=== PATIENT | female | born 1945 | race Caucasian/White ===

== ENCOUNTER 2020-10-11 11:11 | Inpatient (IN) ==
--- NOTE | 2020-09-12 14:47 | PAT Medication Instructions ---
Medication Instructions Date of Service September 12, 2020 Home Medications calcium carbonate-vitamin D3 [Calcium + D] 1 tab PO QAM letrozole 2.5 mg PO QAM paroxetine HCl [Paxil] 40 mg PO QAM Continue as directed letrozole 2.5 mg PO QAM (unless surgeon directs otherwise) DO NOT take the morning of surgery calcium carbonate-vitamin D3 [Calcium + D] 1 tab PO QAM Take morning of surgery With a small sip of water, OTHERWISE NOTHING TO EAT OR DRINK AFTER MIDNIGHT: paroxetine HCl [Paxil] 40 mg PO QAM Other Notes If you have any questions please call us at [phone] or [phone] or [phone] or [phone]
--- NOTE | 2020-09-22 15:16 | Anesthesiology Consultation ---
Date of Service September 22, 2020 Assessment & Plan (1) Encounter for pre-operative examination: Chart Review Chart Review: Acceptable Risk for Surgery (pending preop Covid testing results ) and Patient seen in Pre Admission Testing Pt would like to be deeply sedated during procedure Right UE restriction Per PAT appt on 09/22/20, patient denies any travel or large group activities. No known Covid positive contacts or Covid related symptoms. No known Covid infection in the past 90 days. Preop Covid testing 10/04/20= will await results. Educated on importance of self quarantining, social distancing and wearing mask in public both for the patient and household contacts. History Surgery Operation Date: 10/11/20 08:55 Proposed Procedures p Left Total Hip Arthroplasty - Jayden Holloway DO Height/Weight Height: 5 ft 4 in Weight: 71.7 kg Allergies Allergy/AdvReac Type Severity Reaction Status Date / Time No Known Allergies Allergy Verified 09/01/20 13:42 Medications Home Medications Medication Instructions Recorded Confirmed Last Taken calcium carbonate-vitamin D3 1 tab PO QAM 09/01/20 09/01/20 Unknown [Calcium + D] letrozole 2.5 mg PO QAM 09/01/20 09/01/20 Unknown paroxetine HCl [Paxil] 40 mg PO QAM 09/01/20 09/01/20 Unknown Past Medical History Medical History Breast cancer 2012; rt lumpectomy + chemo/radiation No current issues Depression History of basal cell carcinoma History of melanoma Pt had "pre-melanoma" - s/p removal Osteoarthritis Exercise / Class Metabolic Activity II 4-5 Yardwork/Stairs/Walk up hill (ONE FLIGHT OF STAIRS- NO CHEST PAIN OR SOB ) Past Family History Family History Other No family history of adverse response to anesthesia Past Surgical History Surgical History History of basal cell carcinoma (BCC) excision History of breast biopsy History of cataract surgery History of colonoscopy History of D&C History of lumpectomy of right breast History of melanoma excision History of tooth extraction History of vascular access device Past Anesthesia History No Hx of Anesthesia Complications and No Family Hx of Anesthesia Complications History of PONV No Hx of PONV and No Hx of Motion Sickness Social History Smoking Status: Never smoker Do You Dip or Chew Tobacco: No Hx Alcohol Use: Yes Alcohol type: wine alcohol intake frequency: a few times a week Hx Substance Use: No substance use type: does not use Review of Systems Patient denies chest pain, shortness of breath, dyspnea on exertion, reflux, cough, wheezing, palpitations. No hx of seizures, stroke, [place], apnea/snoring. No hx of blood clots or blood transfusions Physical Exam Vital Signs VITALS BP 111/75 P 83 TEMP 98.2 SP02 98% RESP 16 Constitutional no acute distress ENMT Mouth: no TMJ clicking Thyromental Distance: < 3.5 Finger Breadths (3.0) Mallampati Class: III Partial bottom plate Caps to front top teeth Neck neck extension not limited Respiratory normal respiratory effort; no respiratory distress Auscultation: lungs clear to auscultation bilaterally; no wheezes Cardiovascular Rate/Rhythm: regular rate and regular rhythm Heart Sounds: no murmur Vessels: no carotid bruit Musculoskeletal Spine: no pain with cervical ROM Extremities: extremities normal to inspection Psychiatric Orientation: alert Testing Laboratory Results 09/22/20:09/22/20 PT 10.7 Seconds (9.0-12.0) 09/22/20 INR 1.1 (0.9-1.1) 09/22/20 APTT 24.2 Seconds (21.0-31.0) 09/22/20 Hemoglobin A1c 5.8 % (4.5-5.6) H 09/22/20 Urine Color Yellow 09/22/20 Urine Appearance Clear (Clear) 09/22/20 Urine pH 7.0 (4.5-7.5) 09/22/20 Ur Specific [place] 1.022 (1.000-1.030) 09/22/20 Urine Protein Negative (Negative) 09/22/20: Urine Glucose (UA) Negative (Negative) 09/22/20 Urine Ketones Trace (Negative) H 04/15/21 15:29 Urine Nitrite Negative (Negative) 09/22/20 15:29 Ur Leukocyte Esterase 1+ (Negative) H 09/22/20 15:29 Urine WBC (Auto) 1-5 /hpf (0-5) 09/22/20 15:29 Urine RBC (Auto) 5-10 /hpf (0-4) H 09/22/20 15:29 U Hyaline Cast (Auto) 1-5 /lpf (0-5) 09/22/20 15:29 U Epithel Cells (Auto) >30 /lpf (0-5) H 09/22/20 15:29 Urine Bacteria (Auto) Negative (Negative) 09/22/20 15:29 Blood Type O Positive 09/22/20 15:29 Antibody Screen NEGATIVE 09/22/20 15:29 Electrocardiogram Date: 09/22/20 Findings: + NSR @ (76bpm) Normal EKG per cardio. Chest X-Ray Date: 09/22/20 Findings: + NAD
[2020-09-22 15:48] LABS: Basophils # (auto) 0.04 K/uL (0-0.2); Basophils % (auto) 0.6 %; Eosinophils # (auto) 0.38 K/uL (0-0.5); Eosinophils % (auto) 5.5 %; Hematocrit (blood only) 38.1 % (37-47); Hemoglobin 13.1 g/dL (12.0-16.0); Immature Granulocytes # (auto) 0.01 K/uL (0.00-0.02); Immature Granulocytes % (auto) 0.1 %; Lymphocytes # (auto) 2.64 K/uL (1.2-3.4); Mean Corpuscular Hemoglobin 30.9 pg (25-34); Mean Corpuscular Hgb Conc 34.4 g/dL (32-36); Mean Corpuscular Volume 89.9 fL (80-100); Mean Platelet Volume 8.8 fL (7.4-10.4); Monocytes # (auto) 0.64 K/uL (0.11-0.59); Monocytes % (auto) 9.2 %; Neutrophils # (auto) 3.23 K/uL (1.4-6.5); Neutrophils % (auto) 46.6 %; Platelet Count 295 K/uL (130-400); RDW Coefficient of Variation 14.1 % (11.5-14.5); RDW Standard Deviation 46.8 fL (36.4-46.3); Red Blood Count 4.24 M/uL (4.2-5.4); White Blood Count 6.94 K/uL (4.8-10.8)
[2020-09-22 15:55] LABS: Appearance Urine Clear (Clear); Bacteria Urine Automated Negative (Negative); Bilirubin Urine Negative (Negative); Blood Urine Negative (Negative); Color Urine Yellow; Epithelial Cell Urine Auto >30 /lpf (0-5); Glucose Urine UA Negative (Negative); Ketones Urine Trace (Negative); Leukocyte Esterase Urine 1+ (Negative); Nitrite Urine Negative (Negative); Protein Urine Negative (Negative); Specific Gravity Urine 1.022 (1.000-1.030); Urobilinogen Urine Negative (Negative)
--- NOTE | 2020-09-22 15:55 | XRay Report ---
XR chest Pre-admission PA/Lat HISTORY: 75 years-old Female pat chronic degenerative joint disease COMPARISON: None TECHNIQUE: PA and lateral views of the chest FINDINGS: Cardiomediastinal and hilar silhouettes are within normal limits. No pneumothorax, pleural effusion, airspace consolidation or overt pulmonary edema. Surgical clips of the right axilla. Degenerative antonia nges of the shoulders and spine. IMPRESSION: No acute process. ACT 112: Negative or not required by law. The above report was generated using voice recognition software. It may contain grammatical, syntax o r spelling errors. Electronically signed by: Allan Lund M.D. 09/22/2020 3:53 PM
[2020-09-22 16:01] LABS: INR 1.1 (0.9-1.1); Partial Thromboplastin Ratio 0.9; Partial Thromboplastin Time 24.2 Seconds (21.0-31.0); Prothrombin Time 10.7 Seconds (9.0-12.0)
[2020-09-22 16:15] LABS: Albumin Level 3.8 gm/dl (3.4-5.0); BUN Creatinine Ratio 19.9 (10-20); Calcium 9.4 mg/dl (8.5-10.1); Creatinine Clr Calc Pharmacy 47.2 ml/min; Est GFR (African American) 65.3; Est GFR (Non-African American) 56.3; Potassium 3.9 mmol/L (3.5-5.1)
[2020-09-23 06:16] LABS: Estimated Average Glucose 120 mg/dl; Hemoglobin A1C 5.8 % (4.5-5.6)
--- NOTE | 2020-09-23 06:50 | Electrocardiogram Report ---
Test Reason : Blood Pressure : / mmHG Vent. Rate : 076 BPM Atrial Rate : 076 BPM P-R Int : 148 ms QRS Dur : 080 ms QT Int : 382 ms P-R-T Axes : 081 081 072 degrees QTc Int : 429 ms Normal sinus rhythm Normal ECG No previous ECGs available Confirmed by Hayes Burroughs ([id number]) on 09/23/2020 6:49:40 AM Referred By: Jayden Holloway Confirmed By:Hayes Burroughs
--- NOTE | 2020-10-09 12:47 | History & Physical Report ---
Date of Service October 11, 2020 Assessment & Plan (1) Degenerative joint disease of left hip: I have indicated the patient for left anterior total hip replacement. The risks, benefits and complications of surgery were explained to the patient which include but not limited to infection, acute blood loss, DVT/PE, injury to nerves, vessels, bone, soft tissue, arthrofibrosis, chronic pain, failure of the prosthesis, hip dislocation, leg length discrepancy, need for additional surgery, cardiac and pulmonary events and . The patient wished to proceed with surgery and informed consent was obtained at this time. We will plan for 81mg ASA BID post-operatively for DVT prophylaxis. Upon discharge the patient will be discharged home with home health services. Appropriate clearances by NAIMA P were obtained. History of Present Illness Chief Complaint: Left hip pain/DJD Primary Care Provider: Rochelle Guzmán The patient is a 75 year old female who presents with complaints of severe left hip pain and DJD. The patient has failed outpatient conservative treatments to this point which included NSAIDs, activity modification and a home exerci se/walking program. The patient's pain and limited function have progressed to the point where they severely hinder their activities of daily living and they no longer tolerate exercise programs. They are requesting to proceed with total hip replacement surgery. Allergies Allergy/AdvReac Type Severity Reaction Status Date / Time No Known Allergies Allergy Verified 10/11/20 11:36 Home Medications Medication Instructions Recorded Confirmed Type calcium carbonate-vitamin D3 1 tab PO QAM 09/01/20 10/11/20 History [Calcium + D] letrozole 2.5 mg PO QAM 09/01/20 10/11/20 History paroxetine HCl [Paxil] 40 mg PO QAM 09/01/20 10/11/20 History multivitamin 1 tab PO DAILY 10/11/20 10/11/20 History Past Med/Surg History Medical History Breast cancer 2012; rt lumpectomy + chemo/radiation No current issues Depression History of basal cell carcinoma History of melanoma Pt had "pre-melanoma" - s/p removal Osteoarthritis Surgical History History of basal cell carcinoma (BCC) excision History of breast biopsy History of cataract surgery History of colonoscopy History of D&C History of lumpectomy of right breast History of melanoma excision History of tooth extraction History of vascular access device Family History Other No family history of adverse response to anesthesia Social History Smoking Status: Never smoker Second Hand Exposure: Yes (hx); Do You Dip or Chew Tobacco: No; Hx Alcohol Use: Yes Alcohol type: wine Hx Substance Use: No Preferred Language: [place] Communication Ability: Effective 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 Constitutional: WD/WN, vitals as above Eyes: PERRL, conjunctivae normal, anicteric sclerae ENMT: external ear and nose normal, oropharynx normal Neck: trachea midline, no thyromegaly Respiratory: normal respiratory effort, lungs clear to auscultation Cardiovascular: RRR, no murmur, no edema Gastrointestinal (Abdomen): normal bowel sounds, soft, nontender, no hepatosplenomegaly Musculoskeletal: no cyanosis or clubbing, extremities motor strength 5/5 Skin: no rashes, warm and dry Neurologic: patellar DTR's 2+ bilat, sensation intact Psychiatric: A+Ox3, euthymic affect Lymphatic: no cervical or axillary lymphadenopathy Results & Data Results & Data ([facility]) Diagnostic Findings Multiple views of the hip demonstrates severe DJD with complete loss of the joint space. +osteophytes, +sclerosis, +subchondral cysts. Pre Admission Testing Addendum Laboratory Results 09/22/20 15:29 09/22/20 15:29 PT 10.7 Seconds (9.0-12.0) 09/22/20 15:29 INR 1.1 (0.9-1.1) 09/22/20 15:29 APTT 24.2 Seconds (21.0-31.0) 09/22/20 Hemoglobin A1c 5.8 % (4.5-5.6) H 09/22/20 Urine Color Yellow 09/22/20 Urine Appearance Clear (Clear) 09/22/20 Urine pH 7.0 (4.5-7.5) 09/22/20 Ur Specific [place] 1.022 (1.000-1.030) 09/22/20 Urine Protein Negative (Negative) 09/22/20 Urine Glucose (UA) Negative (Negative) 09/22/20 Urine Ketones Trace (Negative) H 09/22/20 Urine Nitrite Negative (Negative) 09/22/20 Ur Leukocyte Esterase 1+ (Negative) H 09/22/20 Urine WBC (Auto) 1-5 /hpf (0-5) 09/22/20 Urine RBC (Auto) 5-10 /hpf (0-4) H 09/22/20 U Hyaline Cast (Auto) 1-5 /lpf (0-5) 09/22/20 U Epithel Cells (Auto) >30 /lpf (0-5) H 09/22/20 Urine Bacteria (Auto) Negative (Negative) 09/22/20 Blood Type O Positive 09/22/20 Antibody Screen NEGATIVE 09/22/20
[~2020-10-11 11:11] MED LIST: ACETAMINOPHEN 500 MG TAB PO SCH; BUPIVACAINE 0.5 % 5 MG/1 ML PF 10ML VIAL ONE; CeleBREX 200 MG CAP PO SCH; FAMOTIDINE 20 MG TAB PO SCH; GABAPENTIN 300 MG CAP PO SCH; LR 500ML BOLUS, THEN 15ML/HR IV SCH; METOCLOPRAMIDE HCL 10 MG TABLET PO SCH; ROPIVACAINE 0.5% HCL/PF 150 MG, BUPIVACAINE 0.75% MPF 20 ML, EPINEPHrine 30MG/30ML (OR ... INSTIL SCH; TRANEXAMIC ACID 1,000 MG **IV Intra-op IV SCH; TRANEXAMIC ACID 1,000 MG **IV Pre-op IV SCH; ceFAZolin 2000MG 2,000 MG/15 ML SYR IV SCH; oxyCODONE HCL 10 MG TABCR (OxyCONTIN) PO SCH
--- NOTE | 2020-10-11 12:56 | History & Physical Bridge Note ---
Date of Service October 11, 2020 History & Physical Bridge Note I have examined the patient, reviewed the History & Physical and in the interval since the performance of the History & Physical I have noted the following changes of clinical significance: no changes noted
[2020-10-11] MEDS ORDERED: ONDANSETRON INJ 2 MG/ML 2 ML VIAL ONE (15:57)
[2020-10-11] MEDS ORDERED: PROPOFOL IV EMULSION 10 MG/ML 20 ML VIAL IV ONE ×2 (15:57→18:38)
[2020-10-11] MEDS ORDERED: fentaNYL citrate 100 MCG/2 ML VIAL ONE (15:57)
[2020-10-11] MEDS ORDERED: LIDOCAINE HCL 2% 2 ML VIAL/AMP(20MG/ML) INFIL ONE (15:57)
[2020-10-11] MEDS ORDERED: MIDAZOLAM HCL 1 MG/ML 2ML VIAL ONE (15:57)
[2020-10-11] MEDS ORDERED: ePHEDrine sulfate 50 MG/ML AMP IV PRN (16:13)
[2020-10-11] MEDS ORDERED: ONDANSETRON INJ 2 MG/ML 2 ML VIAL IV PRN ×2 (16:13→21:03)
[2020-10-11] MEDS ORDERED: fentaNYL citrate 100 MCG/2 ML VIAL IV PRN (16:13)
[2020-10-11] MEDS ORDERED: ATROPINE SULFATE 0.1 MG/ML 10ML SYR IV PRN (16:13)
[2020-10-11] MEDS ORDERED: ORTHO JOINT ANESTHETIC ONE (16:29)
--- NOTE | 2020-10-11 19:43 | Post Operative Brief Note ---
Immediate Post Op Note v1 Date of Surgery October 11, 2020 Pre & Post Diagnosis Operation Date: 10/11/20 13:55 Pre-Op Diagnosis: Degenerative joint disease of left hip Post-Op Diagnosis: Degenerative joint disease of left hip I identified the patient and participated in the time-out.: Yes Procedure Operation Date: 10/11/20 13:55 Actual Procedures p Left Total Hip Arthroplasty(Left) - Jayden Holloway DO Surgeon Jayden Holloway DO [place] Peeler Brayan Kessler Estimated Blood Loss 195 Findings Consistent with Post-Op Diagnosis Fluids See anesthesia report Specimens Femoral head Anesthesia Type Spinal MAC Complications none Disposition Disposition: Recovery Room Overlapping Procedure I was present for: the critical portions of procedure. I was immediately available: during the entire case. Back up surgeon: was not required during procedure.
--- NOTE | 2020-10-11 19:45 | Operative Report ---
Post Operative Report Pre & Post Diagnosis Operation Date: 10/11/20 13:55 Pre-Op Diagnosis: Degenerative joint disease of left hip Post-Op Diagnosis: Degenerative joint disease of left hip I identified the patient and participated in the time-out.: Yes Procedure Operation Date: 10/11/20 13:55 Actual Procedures p Left Total Hip Arthroplasty(Left) - Jayden Holloway DO Surgeon Jayden Holloway DO [employer] Sorter Brayan Kessler Estimated Blood Loss 195 Findings Consistent with Post-Op Diagnosis Fluids See anesthesia report Specimens Femoral head Anesthesia Type Spinal MAC Complications none Disposition Disposition: Recovery Room Indications The patient is a 68-year-old female who presents with severe progressive left hip DJD who has failed outpatient conservative treatments. I indicated the patient for a anterior total hip replacement and the risks and benefits were explained in detail which include but not limited to infection, bleeding, blood clot, damage to surrounding bone, nerves, vessels, soft tissue, hip dislocation, failure of the prosthesis, leg length discrepancy, need for additional surgery and . The patient agreed to proceed with replacement of the hip and informed consent was obtained. Appropriate clearances were obtained. Description of Procedure COMPONENTS USED: [employer] hip system: Acetabulum size 52, femur size 5 high offset, femoral head 36+4, liner 52x36, acetabular screw 25 mm x 1. DESCRIPTION OF PROCEDURE: Following satisfactory spinal anesthesia, the patient was placed supine on the OR table. The right leg was placed in the well leg singh and the left leg in the traction device. The left leg was prepared with ChloraPrep and draped sterilely. A surgical timeout was performed, patient identified and site gina verified. Appropriate antibiotics were given. A standard anterior approach in the interval between the sartorius and tensor muscles was performed. Dissection was carried down through subcutaneous tissues. Electrocautery was utilized for hemostasis. Circumflex femoral vessels were identified, tied and ligated. The anterior capsular fat pad was removed and the capsulotomy was performed revealing the arthritic femoral neck and head. A femoral neck cut was made with reciprocating saw and the bone fragments removed. The acetabular self-retraining retractor was placed. Acetabular reaming was completed under fluoroscopic guidance, a 52 shell was impacted into an anatomic position and secured with a acetabular screw. Local anesthetic was placed and following irrigation, the polyethylene liner was placed. The femur was placed into position of external rotation, extension and adduction. Femoral canal was prepared up to the size 5 high offset. Trial reduction with a 36+4 neck length head showed good soft tissue tension, leg lengths restored, and good fit and fill of the proximal canal using fluoroscopic landmarks. The hip was dislocated. The trial component was removed. The final implant was placed. The hip was irrigated with sterile saline solution and reduced. A Betadine soak was performed. After 3 minutes, the hip was once more irrigated with copious sterile saline solution with bacitracin. Irma-incisional soft tissue was injected utilizing [place] [employer]ix which includes a combination of Ropivicaine 0.5% 150mg, Bupivicaine 0.5%/Epinephrine 1:200,000 30ml, Toradol 30mg, Dexamethasone 4mg, Ketamine 10mg, Clonidine 100mcg and NSS 30ml solution. The capsule was then closed with 1-0 Vicryl interrupted figure of eight sutures. The fascia was closed with a running suture of #1 Vicryl, the subcutaneous tissues with 2-0 Vicryl and the skin was closed with ellie. A sterile dry dressing was applied including faith incisional VAC. The patient tolerated the procedure well and was transported to PACU in stable condition. Due to the complex nature of the procedure, the entire surgery was performed with the operational assistance of Brayan Kessler PA-C. The hospital nursing assistant, under direct supervision, was involved in the actual performance of all aspects of the surgical procedure including patient positioning, hemostasis, tissue retraction, instrument management and wound closure. I attest to the content of the Intraoperative Record and any orders documented therein. Any exceptions are noted below.
--- NOTE | 2020-10-11 19:48 | Fluoroscopy Report ---
FL hip LT 1V CLINICAL HISTORY: Left hip arthroplasty COMPARISON STUDY: None FLUOROSCOPY TIME: 37 seconds. NUMBER OF FLUOROSCOPIC IMAGES: 2 FINDINGS: 2 intraoperative fluoroscopic spot images reveal postsurgical changes of a total left hip a rthroplasty. The acetabular and femoral components appear well seated. IMPRESSION: Intraoperative fluoroscopic spot images demonstrating a total left hip arthroplasty. ACT 112: Negative or not required by law. Electronically signed by: Domingo Jimenez M.D. 10/11/2020 7:47 PM
--- NOTE | 2020-10-11 20:28 | XRay Report ---
XR hip 1V LT w pelvis CLINICAL HISTORY: Postop hip arthroplasty COMPARISON: None. DISCUSSION: There are postsurgical changes of a total left hip arthroplasty. There is no dislocation. The femoral and acetabular components appear well seated. There are overlying skin ellie. There is gas present within the soft tissues. IMPRESSION: Postsurgical changes of a total left hip arthroplasty. ACT 112: Negative or not required by law. Electronically signed by: Domingo Jimenez M.D. 10/11/2020 8:27 PM
--- NOTE | 2020-10-11 20:36 | Anesthesiology Progress Note ---
Date of Service October 11, 2020 Anesthesia Post Procedure Vital Signs Vital Signs: Temp Pulse Pulse Resp BP Pulse Ox 10/11/20 20:25 70 16 123/74 93 10/11/20 20:15 67 14 109/71 94 10/11/20 20:06 96.8 F L 82 12 119/69 96 10/11/20 11:42 98.2 F 82 16 107/61 96 Transfer of Care Handoff Completed per policy Notes Mental Status: alert / awake / arousable and participated in evaluation Patient Amnestic to Procedure: Yes Nausea / Vomiting: adequately controlled Pain: adequately controlled Airway Patency, RR, SpO2: stable & adequate BP & HR: stable & adequate Hydration State: stable & adequate Neuraxial Anesthesia: was administered and sensory block is resolving Anesthetic Complications: no major complications apparent and Pt Satisfied with anesthetic care
[2020-10-11] MEDS ORDERED: HYDROmorphone INJ 0.5 MG/0.5 ML SYR IV PRN (21:03)
[2020-10-11] MEDS ORDERED: bisacodyL 10 MG SUPP PR PRN (21:03)
[2020-10-11] MEDS ORDERED: SODIUM CHLORIDE 0.9% 1000ML 1,000 ML IV SCH (21:03)
[2020-10-11] MEDS ORDERED: NALOXONE HCL 0.4 MG/1 ML VIAL/CARP IV PRN (21:03)
[2020-10-11] MEDS ORDERED: diphenhydrAMINE Capsule 25 MG CAP PO PRN (21:03)
[2020-10-11] MEDS ORDERED: METOCLOPRAMIDE HCL INJ 5 MG/ML 2 ML VIAL IV PRN (21:03)
[2020-10-11] MEDS ORDERED: oxyCODONE HCL IR 5 MG TAB (IMMEDIATE RELEASE) PO PRN (21:03)
[2020-10-11] MEDS ORDERED: MAGNESIUM HYDROXIDE SUSP 30 ML UDC PO PRN (21:03)
[2020-10-11] MEDS ORDERED: SENNA 8.6 MG TAB PO SCH (21:03)
--- NOTE | 2020-10-11 22:09 | Orthopedic Progress Note ---
Date of Service October 11, 2020 Assessment & Plan (1) Degenerative joint disease of left hip: s/p L anterior MICHAELA -ancef x 24 -DVT ppx: SCDs, TEDs, 81mg ASA BID -WBAT LLE -PT/OT -PO XR demonstrates a well aligned well fixed prothesis without fracture/dislocation -am labs -DC planning Admission and Anticipated Discharge Date Admission Date: October 11, 2020 Subjective Post Operative Progress Note Patient seen in PACU, comfortable, denies complaints, pain well controlled, no acute issues. Review of Systems Review of Systems: All systems reviewed & are unremarkable except as noted in HPI & below Constitutional: as per Subjective / HPI Physical Exam Physical Exam: PE LLE limited secondary to spinal, +2 DP pulse, compartments soft NT, dressing CDI Constitutional: WD/WN, vitals as above Results & Data ([facility]) Vital Signs (Past 12 Hours) Vital Signs Temp Pulse Pulse Pulse Resp BP Pulse Ox 10/11/20 21:25 36.3 C L 68 16 113/72 96 10/11/20 20:55 36.2 C L 68 18 123/77 95 10/11/20 20:45 36.5 C 70 12 129/70 93 10/11/20 20:35 36.5 C 71 18 123/72 93 10/11/20 20:25 70 16 123/74 93 10/11/20 20:15 67 14 109/71 94 10/11/20 20:06 36.0 C L 82 12 119/69 96 10/11/20 11:42 36.8 C 82 16 107/61 96
[2020-10-11] MEDS: ACETAMINOPHEN 500 MG TAB PO SCH (22:13)
[2020-10-11] MEDS: DOCUSATE SODIUM 100 MG CAP PO SCH (22:14)
[2020-10-11] MEDS: KETOROLAC TROMETHAMINE 15 MG/ML VIAL IV SCH (22:14)
[2020-10-12] MEDS: ceFAZolin 2000MG 2,000 MG/15 ML SYR IV SCH ×2 (03:03→10:13)
[2020-10-12] MEDS: KETOROLAC TROMETHAMINE 15 MG/ML VIAL IV SCH ×2 (05:41→11:42)
[2020-10-12] MEDS: ACETAMINOPHEN 500 MG TAB PO SCH ×2 (05:41→13:12)
[2020-10-12 06:16] LABS: Basophils # (auto) 0.02 K/uL (0-0.2); Basophils % (auto) 0.1 %; Hemoglobin 11.9 g/dL (12.0-16.0); Immature Granulocytes # (auto) 0.02 K/uL (0.00-0.02); Immature Granulocytes % (auto) 0.1 %; Lymphocytes # (auto) 1.66 K/uL (1.2-3.4); Lymphocytes % (auto) 12.4 %; Mean Corpuscular Hemoglobin 30.1 pg (25-34); Mean Corpuscular Hgb Conc 33.1 g/dL (32-36); Mean Corpuscular Volume 91.1 fL (80-100); Mean Platelet Volume 8.9 fL (7.4-10.4); Monocytes # (auto) 0.86 K/uL (0.11-0.59); Monocytes % (auto) 6.4 %; Neutrophils # (auto) 10.85 K/uL (1.4-6.5); Platelet Count 289 K/uL (130-400); RDW Coefficient of Variation 13.8 % (11.5-14.5); RDW Standard Deviation 45.9 fL (36.4-46.3); Red Blood Count 3.95 M/uL (4.2-5.4); White Blood Count 13.41 K/uL (4.8-10.8)
[2020-10-12 06:48] LABS: BUN Creatinine Ratio 17.7 (10-20); Calcium 8.2 mg/dl (8.5-10.1); Creatinine Clr Calc Pharmacy 40.7 ml/min; Est GFR (African American) 54.9; Est GFR (Non-African American) 47.3; Potassium 3.9 mmol/L (3.5-5.1)
--- NOTE | 2020-10-12 08:18 | Orthopedic Progress Note ---
Date of Service October 12, 2020 Assessment & Plan (1) Degenerative joint disease of left hip: s/p L anterior MICHAELA POD#1 -ancef x 24 -DVT ppx: SCDs, TEDs, 81mg ASA BID -WBAT LLE -PT/OT -PO XR demonstrates a well aligned well fixed prothesis without fracture/dislocation -am labs - as above, hgb 11.9 -DC planning - home with Admission and Anticipated Discharge Date Admission Date: October 11, 2020 Subjective Post Operative Progress Note Patient seen sitting up in bed, comfortable, denies complaints, pain well controlled, no acute issues. Denies F/C/N/V/SOB/CP. Review of Systems Review of Systems: All systems reviewed & are unremarkable except as noted in HPI & below Constitutional: as per Subjective / HPI Physical Exam Physical Exam: LLE NVSI +EHL/FHL/TA/GS SILT grossly, +2 DP pulse, compartments soft NT, dressing cdi. Constitutional: WD/WN, vitals as above Results & Data ([facility]) Vital Signs (Past 12 Hours) Vital Signs Temp Pulse Pulse Resp BP Pulse Ox 10/12/20 07:47 36.8 C 63 18 116/74 94 10/12/20 03:10 36.8 C 76 16 117/74 94 10/11/20 23:59 36.8 C 79 16 106/68 95 10/11/20 22:54 36.5 C 76 16 106/70 96 10/11/20 22:18 36.3 C L 76 16 112/70 96 10/11/20 21:25 36.3 C L 68 16 113/72 96 10/11/20 20:55 36.2 C L 68 18 123/77 95 10/11/20 20:45 36.5 C 70 12 129/70 93 10/11/20 20:35 36.5 C 71 18 123/72 93 10/11/20 20:25 70 16 123/74 93 Laboratory Results 10/12/20 10/12/20 10/11/20 Range/Units 05:44 05:44 11:34 WBC 13.41 H (4.8-10.8) K/uL RBC 3.95 L (4.2-5.4) M/uL Hgb 11.9 L (12.0-16.0) g/dL Hct 36.0 L (37-47) % MCV 91.1 (80-100) fL MCH 30.1 (25-34) pg MCHC 33.1 (32-36) g/dL RDW Std Deviation 45.9 (36.4-46.3) fL RDW Coeff of Stephanie 13.8 (11.5-14.5) % Plt Count 289 (130-400) K/uL MPV 8.9 (7.4-10.4) fL Immature Gran % (Auto) 0.1 % Neut % (Auto) 81.0 % Lymph % (Auto) 12.4 % [place] % (Auto) 6.4 % Eos % (Auto) 0.0 % Baso % (Auto) 0.1 % Neut # (Auto) 10.85 H (1.4-6.5) K/uL Lymph # (Auto) 1.66 (1.2-3.4) K/uL [place] # (Auto) 0.86 H (0.11-0.59) K/uL Eos # (Auto) 0.00 (0-0.5) K/uL Baso # (Auto) 0.02 (0-0.2) K/uL Immature Gran # (Auto) 0.02 (0.00-0.02) K/uL Sodium 139 (136-145) mmol/L Potassium 3.9 (3.5-5.1) mmol/L Chloride 109 H (98-107) mmol/L Carbon Dioxide 24 (21-32) mmol/L Anion Gap 6.0 (3-11) BUN 20 H (7-18) mg/dl Creatinine 1.12 (0.6-1.2) mg/dl Est Cr Clr Drug Dosing 40.7 ml/min Est GFR ( Amer) 54.9 Est GFR (Non-Af Amer) 47.3 BUN/Creatinine Ratio 17.7 (10-20) Glucose 124 H (70-99) mg/dl Calcium 8.2 L (8.5-10.1) mg/dl COVID-19 Eval Order SARS-CoV-2, RNA, NAAT NEGATIVE (NEGATIVE) 10/11/20 Range/Units 11:34 WBC (4.8-10.8) K/uL RBC (4.2-5.4) M/uL Hgb (12.0-16.0) g/dL Hct (37-47) % MCV (80-100) fL MCH (25-34) pg MCHC (32-36) g/dL RDW Std Deviation (36.4-46.3) fL RDW Coeff of Stephanie (11.5-14.5) % Plt Count (130-400) K/uL MPV (7.4-10.4) fL Immature Gran % (Auto) % Neut % (Auto) % Lymph % (Auto) % [place] % (Auto) % Eos % (Auto) % Baso % (Auto) % Neut # (Auto) (1.4-6.5) K/uL Lymph # (Auto) (1.2-3.4) K/uL [place] # (Auto) (0.11-0.59) K/uL Eos # (Auto) (0-0.5) K/uL Baso # (Auto) (0-0.2) K/uL Immature Gran # (Auto) (0.00-0.02) K/uL Sodium (136-145) mmol/L Potassium (3.5-5.1) mmol/L Chloride (98-107) mmol/L Carbon Dioxide (21-32) mmol/L Anion Gap (3-11) BUN (7-18) mg/dl Creatinine (0.6-1.2) mg/dl Est Cr Clr Drug Dosing ml/min Est GFR ( Amer) Est GFR (Non-Af Amer) BUN/Creatinine Ratio (10-20) Glucose (70-99) mg/dl Calcium (8.5-10.1) mg/dl COVID-19 Eval [facility] [place] [place] SARS-CoV-2, RNA, NAAT (NEGATIVE)
[2020-10-12] MEDS: DOCUSATE SODIUM 100 MG CAP PO SCH (08:32)
[2020-10-12] MEDS ORDERED: LETROZOLE 2.5 MG TAB PO SCH (09:00)
[2020-10-12] MEDS ORDERED: ASPIRIN 81 MG ECTAB PO SCH (09:00)
[2020-10-12] MEDS ORDERED: PARoxetine HCL 20 MG TAB PO SCH (09:00)
--- NOTE | 2020-10-12 21:55 | Discharge Summary ---
Date of Service October 12, 2020 Admission HPI Per Admitting Provider The patient is a 75 year old female who presents with complaints of severe left hip pain and DJD. The patient has failed outpatient conservative treatments to this point which included NSAIDs, activity modification and a home exercise/walking program. The patient's pain and limited function have progressed to the point where they severely hinder their activities of daily living and they no longer tolerate exercise programs. They are requesting to proceed with total hip replacement surgery. Principal Diagnosis Left anterior total hip replacement Discharge Exam LLE NVSI +EHL/FHL/TA/GS SILT grossly, +2 DP pulse, compartments soft NT, dressing cdi. Constitutional WD/WN, vitals as above Discharge Data Allergies Allergy/AdvReac Type Severity Reaction Status Date / Time No Known Allergies Allergy Verified 10/11/20 11:36 Consultations 10/06/20 09:47 Consult Hospitalist Routine Procedures Performed Operation Date: 10/11/20 13:55 Actual Procedures p Left Total Hip Arthroplasty(Left) - Jayden Holloway DO Ordered Studies 10/11/20 17:48 FL hip LT 1V Routine Hospital Course (1) Degenerative joint disease of left hip: The patient is a 75 -year-old female who presents with long standing history of severe left hip DJD and failed outpatient conservative treatments. The patient's symptoms have progressed to the point where it has been difficult to perform even normal activities of daily living. I indicated the patient for a left anterior total hip arthroplasty, the risks, benefits and complications of the procedure include but not limited to infection, bleeding, damage to bone, nerves, vessels, surrounding soft tissue, may develop blood clots, loss of function, leg length discrepancy, dislocation, failure of the components, loosening of the components, the need for additional surgery and . The patient wished to proceed with surgery at this time and informed consent was obtained. Hospital Course: On 10/11/20 the patient was taken to the operating room, adequate anesthesia administered and underwent a left anterior total hip arthroplasty. The patient tolerated the procedure well and was taken to the PACU in stable condition. Post-operatively the patient was started on a DVT ppx medication and given appropriate IV antibiotics. Consults were placed to physical therapy, occupational therapy and case management. On POD#1, the patient did well overnight and their pain was well controlled. Labs were drawn and the Hgb was 11.9. The patient progressed well with PT. Dressings were changed at this time and the incision was clean, dry and intact. The patients hospital stay was relatively uneventful and they were deemed stable by the orthopedic team and consultants to be discharged home with HH on 10/12/20. Discharge Instructions: Upon discharge the patient may weight bear as tolerates through their operative extremity. They were instructed to keep the incision clean and dry at all times. The patient may shower but should not submerge the incision, avoid bathing, pools and hot tubs. The patient was given a script for pain medication and should take as instructed. The patient was given a script for DVT ppx 81mg ASA BID and should take as directed. The patient was instructed to not drive or travel for long distances until cleared to do so. If the patient develops any symptoms of fevers, chills, nausea, vomiting, increased redness, swelling, pain or drainage from the surgical site, they should notify the office and/or proceed to the nearest emergency room. The patient should follow up in 10-14 days after surgery for their routine post-operative follow-up appointment and should call the office, to confirm the date and time. s/p L anterior MICHAELA POD#1 -ancef x 24 -DVT ppx: SCDs, TEDs, 81mg ASA BID -WBAT LLE -PT/OT -PO XR demonstrates a well aligned well fixed prothesis without fracture/dislocation -am labs - as above, hgb 11.9 -DC planning - home with Total Time Total Time Spent Total Time Spent (In Minutes): 30 Discharge Plan Discharge Items Patient Disposition: Home - Home Health Services Reason For Visit: Osteoarthritis, Left Hip Discharge Diagnosis: Left anterior total hip replacement Condition on Discharge: Good Activity: Per Instructions section Lifting: Wait until after follow-up appointment Bathing: Keep incision dry Sexual Activity: Wait until after follow-up appointment Exercise/Sports: Wait until after follow-up appointment Driving/Machine Use: No driving. Weightbearing: Full weightbearing Non-emergency contact: Primary Care Provider and Surgeon Call non-emergency contact if: you have any medication questions, your symptoms worsen, your pain is not controlled, your pain is worsening, your pain is unusual for you, your pain is concerning for you, you have a fever, your temperature is above 101, your wound has increased redness, your wound has increased drainage and your wound pain has increased Follow-up/Referrals: Rochelle Guzmán CRNP [Primary Care Provider] - Diet: Regular Addtl Attending Provider Instructions: ACTIVITY RECOMMENDATIONS: SELF CARE INSTRUCTIONS AFTER TOTAL HIP REPLACEMENT : Direct Anterior Approach Until the incision and soft tissues around your hip have healed, there is a possibility that the hip prosthesis could dislocate. A. Hip flexion ( Up & Down out of chair or steps ) may be difficult. This is normal. B. Numbness in front of the thigh is also normal for a few weeks. C. Use hand rails when walking on stairs. D. Wear low heeled shoes with non-slip soles. E. Be sure that your floors are free of things that could trip you - throw rugs, electrical cords, small objects. Avoid wet and waxed floors, especially with crutches and canes. F. Try to walk several times a day with rest periods between. G. Continue with all the exercises taught to you in the hospital. Again, make walking a part of your daily routine. SPECIAL CARE INSTRUCTIONS: VERY IMPORTANT TO READ AND REVIEW A. You may still be at risk for phlebitis and blood clots. 1. Wear surgical stockings (RUI hose) for 2 weeks after surgery to improve circulation and reduce swelling. 2. Take Aspirin 81mg twice daily for 4 weeks or as directed by your doctor. This is your blood thinner. 3. High risk patients may be prescribed a stronger blood thinner if necessary. 4. If you are on Coumadin normally, your family doctor/animal husbandry professor should monitor your blood work. Expect a phone call the day of or the day after bloodwork is drawn to adjust your dosage. B. You must take antibiotics before having dental work, bladder, bowel and other surgery. Your doctor will provide you with a permanent card to carry describing precautions. C. Call [facility] if you have a fever, redness or swelling around the incision, cloudy drainage from incision, or sudden increase in pain in your hip, not relieved by your regular pain medication. D. Please call the office at if you have any concerns or questions about your operation or recovery. * YOU MAY SHOWER, NO TUB BATHS UNTIL CLEARED BY YOUR DOCTOR. - Keep an extra close eye on the top portion of your incision. Be sure to keep clean & dry. * WEAR RUI HOSE 20 HOURS PER DAY FOR 2 WEEKS. * YOU MAY PROGRESS FROM A WALKER, TO A CANE, TO INDEPENDENT AT YOUR OWN PACE. * MOST PATIENTS WILL HAVE HOME NURSING FOR THERAPY. IF YOU DECIDE TO DO OUTPATIENT PHYSICAL THERAPY, PLEASE SCHEDULE THIS 3 TIMES PER WEEK. *TIFFANI incisional vac is a special dressing covering your incision. This prashanth ssing provides a sterile dry environment while you are healing. The dressing is to be left in place for 7 days post-operatively. Your home nurse or surgeon will remove. If you develop any redness or blisters or have any questions notify your surgeon immediately. FOLLOW UP VISIT: If appointment is not already scheduled: Please call [facility] to make a follow-up appointment for 2 weeks after your surgery at . Pending Studies at Discharge: No Stand-Alone Forms: [facility], Opioid Pain Management, Smoking Cessation Medications and DC Order Prescriptions: New celecoxib [Celebrex] 200 mg Capsule 200 mg PO BID PRN (Reason: pain/inflammation) Qty: 30 RF: 0 aspirin 81 mg Tablet,Delayed Release (Dr/Ec) 81 mg PO BID Qty: 56 RF: 0 acetaminophen 500 mg Tablet 1,000 mg PO Q8 PRN (Reason: pain/fevers) Qty: 90 RF: 0 oxycodone 5 mg Tablet 5 mg PO Q6H MDD 4 PRN (Reason: pain) Qty: 30 RF: 0 sennosides [Senokot] 8.6 mg Tablet 17.2 mg PO HS PRN (Reason: constipation) Qty: 30 RF: 0 Continued calcium carbonate-vitamin D3 600 mg(1,500mg) -200 unit Tablet 1 tab PO QAM RF: 0 letrozole 2.5 mg Tablet 2.5 mg PO QAM RF: 0 paroxetine HCl [Paxil] 40 mg Tablet 40 mg PO QAM RF: 0 multivitamin Tablet,Chewable 1 tab PO DAILY RF: 0 Discharge Orders: Discharge Order (Routine); Ordered 10/12/20 Ordered By: Jayden Lomax/Other Patient Handouts: DVT Post Op Prevention, Hip Replace Total Dc Admission Data Admit Date/Time: 10/11/20 19:55 Attending Provider: Jayden Holloway Admit Provider: Jayden Holloway Primary Care Provider: Rochelle Guzmán Other Providers: [facility],Home Healthcare Other Interventions: Discharge Summary Assessment (RN) Last Done: 10/12/20 10:44
[2020-10-13] MEDS ORDERED: MULTIVITAMIN TAB PO SCH (09:00)
[2020-10-13] MEDS ORDERED: CeleBREX 200 MG CAP PO SCH (09:00)
== END 2020-10-12 13:48 | disposition home health service (06) | DRG 470 ==
LOC: 3E 11:11 → ASU 11:11 → OBSVTOIN 19:55